=== PATIENT | female | born 1965 | race Caucasian/White ===

== ENCOUNTER 2020-08-03 21:14 | Emergency (ER) | payer MEDICARE ==
[~2020-08-03] VITALS: Ht 162.6 cm; Wt 58.5 kg
[2020-08-04] MEDS ORDERED: CARV25 PO (00:52)
[2020-08-04] MEDS ORDERED: LOSA25 PO (00:52)
[2020-08-04] MEDS ORDERED: AMLODIPINE-OLM1 EACH PO (00:52)
[2020-08-04] MEDS ORDERED: ASPI81CH PO (00:52)
[2020-08-04] MEDS ORDERED: CYCL10 PO (00:55)
== END 2020-08-04 01:22 | disposition home or self-care (01) ==
LOC: ER 21:14
DX: S10.93XA Contusion of unspecified part of neck, initial encounter (principal); S70.01XA Contusion of right hip, initial encounter; Z79.82 Long term (current) use of aspirin; Z79.899 Other long term (current) drug therapy; Z88.2 Allergy status to sulfonamides; Z88.1 Allergy status to other antibiotic agents; V03.90XA Pedestrian on foot injured in collision with car, pick-up truck or van, unspecified whether traffic or nontraffic accident, initial encounter; Y92.481 Parking lot as the place of occurrence of the external cause
CPT/HCPCS: 72100; 72125; 99284-25; A9270

== ENCOUNTER 2021-08-21 17:54 | Inpatient (IN) | payer MEDICARE ==
[~2021-08-21] VITALS: Ht 162.6 cm; Wt 65.1 kg
[~2021-08-21 17:54] MED LIST: ALPR1 PO; AMLO10 PO; AMLODIPINE-OLM1 EACH PO; ASPI325EC PO; ATORVASTATIN CA80 M1 PO; CARV25 PO; CYCL10 PO; GLIP2.5ER PO; LOSA25 PO; METO25 PO; NICODERM CQ1 EA11 TOP; NITR.4SL SL; ONDA4ODT MM
[2021-08-21 18:21] LABS: BASOPHILS ABSOLUTE AUTO 0.06 K/mm3 (0.00-0.23); BASOPHILS PERCENT AUTO 1 % (0-2); EOSINOPHILS PERCENT AUTO 2 % (0-6); Hematocrit 41.8 % (33.0-51.0); Hemoglobin 13.9 g/dL (11.5-16.0); IMMATURE GRAN ABSOLUTE AUTO 0.03 K/mm3 (0.00-0.10); IMMATURE GRAN PERCENT AUTO 0 % (0-1); LYMPHOCYTES ABSOLUTE AUTO 2.55 K/mm3 (0.84-5.20); LYMPHOCYTES PERCENT AUTO 29 % (21-46); MONOCYTES ABSOLUTE AUTO 0.38 K/mm3 (0.16-1.47); MONOCYTES PERCENT AUTO 4 % (4-13); Mean Corpuscular HGB 29.6 pg (26.0-34.0); Mean Corpuscular HGB Conc 33.3 g/dL (31.5-36.5); Mean Corpuscular Volume 89 fL (80-100); Mean Platelet Volume 8.6 fL (9.1-12.4); NEUTROPHILS PERCENT AUTO 63 % (41-73); Platelet Count 271 K/mm3 (150-400); RDW Coefficient Variation 13.7 % (11.7-14.2); RDW Standard Deviation 44.7 fL (35.1-46.3); Red Blood Cell Count 4.69 M/mm3 (3.80-5.20); White Blood Cell Count 8.72 K/mm3 (4.00-11.30)
[2021-08-21 18:38] LABS: Albumin, Blood 3.6 g/dL (3.4-5.0); Bilirubin, Total 0.3 mg/dL (0.1-1.0); Bun/Creatinine Ratio 12.2 (12.0-20.0); Creatinine, Blood 1.15 mg/dL (0.40-1.00); Globulin, Blood 3.5 g/dL (2.2-4.0); Potassium, Blood 3.8 mmol/L (3.5-5.5); Total Protein, Blood 7.1 g/dL (6.4-8.2)
[2021-08-21 19:48] LABS: Anti-Xa UFH, PHA Monitoring <0.10 IU/mL; International Normalized Ratio 1.05
[2021-08-22 03:58] LABS: BASOPHILS ABSOLUTE AUTO 0.06 K/mm3 (0.00-0.23); BASOPHILS PERCENT AUTO 1 % (0-2); EOSINOPHILS ABSOLUTE AUTO 0.22 K/mm3 (0.00-0.68); EOSINOPHILS PERCENT AUTO 3 % (0-6); Hematocrit 38.7 % (33.0-51.0); Hemoglobin 12.6 g/dL (11.5-16.0); IMMATURE GRAN ABSOLUTE AUTO 0.02 K/mm3 (0.00-0.10); IMMATURE GRAN PERCENT AUTO 0 % (0-1); LYMPHOCYTES ABSOLUTE AUTO 2.85 K/mm3 (0.84-5.20); LYMPHOCYTES PERCENT AUTO 38 % (21-46); MONOCYTES ABSOLUTE AUTO 0.41 K/mm3 (0.16-1.47); MONOCYTES PERCENT AUTO 5 % (4-13); Mean Corpuscular HGB 29.2 pg (26.0-34.0); Mean Corpuscular HGB Conc 32.6 g/dL (31.5-36.5); Mean Corpuscular Volume 90 fL (80-100); Mean Platelet Volume 8.9 fL (9.1-12.4); NEUTROPHILS ABSOLUTE AUTO 3.99 K/mm3 (1.96-9.15); NEUTROPHILS PERCENT AUTO 53 % (41-73); Platelet Count 241 K/mm3 (150-400); RDW Coefficient Variation 13.6 % (11.7-14.2); RDW Standard Deviation 44.8 fL (35.1-46.3); Red Blood Cell Count 4.32 M/mm3 (3.80-5.20); White Blood Cell Count 7.55 K/mm3 (4.00-11.30)
[2021-08-22 04:22] LABS: Alanine Aminotransfer (ALT/SGP 20 U/L (12-78); Alk Phos 84 U/L (50-136); Anion Gap 5 mmol/L (6-16); Aspartate Aminotrans (AST/SGOT 15 U/L (12-37); Bilirubin, Total 0.4 mg/dL (0.1-1.0); Blood Urea Nitrogen 14 mg/dL (8-24); Bun/Creatinine Ratio 15.2 (12.0-20.0); CO2, Blood 29 mmol/L (21-32); Calcium, Blood 8.5 mg/dL (8.5-10.1); Chloride, Blood 105 mmol/L (98-108); Creatinine, Blood 0.92 mg/dL (0.40-1.00); Globulin, Blood 3.1 g/dL (2.2-4.0); Glomerular Filtration Rate >60 (60-); Glucose, Blood 308 mg/dL (70-99); Potassium, Blood 3.5 mmol/L (3.5-5.5); Sodium, Blood 139 mmol/L (136-145); Total Protein, Blood 6.1 g/dL (6.4-8.2)
--- NOTE | 2021-08-22 05:40 | NUR ---
SHIFT SUMMARY PT IS ALERT AND ORINTED X4. THERE HAVE BEEN NO ACUTE CHANGES T/O THE NIGHT. VITALS HAVE BEEN STABLE AND IS ON ROOM AIR WITH SATS ABOVE 92%. PT DENIES CHEST PAIN THIS MORNING AND DENIES BACK PAIN WELL. LAST NIGHT REPORTED CHEST PAIN OF 2/10 AND UPPER BACK PAIN OF 7/10, PAIN WAS RELIEVED WITH MED. HEPARIN IS INFUSING AT 12. TROPONIN IS AT 354 BUT TRENDING DOWN FROM [facility] LAB[facility]. PT IS ABLE TO WALK TO BATHROOM WITH SBA. CONSULT CALLED IN DURING NOC SHIFT. PT IS CURRENTLY NPO. CALL LIGHT IS WITHIN REACH.
--- NOTE | 2021-08-22 16:51 | NUR ---
PT SUMMARY: NO ACUTE CHANGE FOR THE SHIFT, PT DENIES ANY CHEST PAIN MORE OF THE BACK PAIN TODAY PT ON SCHEDULED NORCO WITH RELIEF. VITALS HAS BEEN STABLE. HRR SINUS AT 70'S, BP SYSTOLIC 115-120'S, SATS ABOVE 95% ON RA, AFEBRILE. PT SBA USES THE BATHROOM WITH NO ISSUES. DR MORTON CAME BY AND SAW PT TODAY PLAN FOR ANGIO IN AM, NPO AT MIDNIGHT AND TO HOLD HEP GTT AT 0400AM 08/23/21. PT'S DIET RESUMED. HEP GTT CURRENTLY RUNNING AT 10U/KG/HR, NEXT ANTI XA AT 2100. NO OTHER ISSUES REPORTED FOR THE SHIFT, PT A&OX4, CALLS APPROPRIATELY, WILL REPORT TO ONCOMING SHIFT
--- NOTE | 2021-08-23 01:26 | NUR ---
PATIENT REMAINS IN BED, ALERT ORIENTED BALE TO MAKE NEEDS KNOWN. STANDBY ASSIST TO BATHROOM. PATIENT MEDICATED TIME 1 WITH NORCO AT 2100 SCHEDULE. CONTINUE HEP-ANTI X DRAWN AT 2100. PATIENT WAS REMAINED OF NPO STATIS 12 MIDNIGHT, CONCERNING PROCEDURE IN A.M. OLD NICOTINE PATCH REMOVED AND NEW ONE REPLACED TO RIGHT UPPER SHOULDER. CONTINUE TO MONITOR PATIENT CONDITION. SAFETY MAINTAINED.
--- NOTE | 2021-08-23 15:45 | NUR ---
TRANSFER SUMMARY: REPORT GIVEN TO TWO RORO RN'S AT [facility] DUE TO RN CHANGE. PHONE:[phone]. PATIENT IS STABLE AT THIS TIME HEPARIN INFUSING, WITH DECREASED CHEST PAIN, CHRONIC PAIN HAS BEEN IN CONTROL WITH TID NORCO AND FLEXERIL. PATIENT IS TRANSPORTING VIA [facility], IN TRANSPORT TO [place]. PATIENT HAD A LEFT TR BAND THAT HAD 10 mL OF AIR, I HAVE NOT TAKEN ANY AIR OUT OF SITE, ADDITIONALLY SHE HAS A RIGHT GROIN SITE THAT IS VERY MINIMALLY OOZING, BANDAGE CHANGE WAS GIVEN, DIGITAL MEDIA SALES CONSULTANT INFORMED WILL CALL CARDIOLOGY WITH ANY CHANGES. PATIENT LEFT ALERT AND ORIENTED, ON RA, SISTER HAS PERSONAL BELONGINGS. PATIENT STAFF, TRANSPORT STAFF, [place] RN'S ALL HAD CLEAR UNDERSTANDING OF THE SITUATION AND CONDIDTION OF PATIENT, NO FURTHER QUESTIONS COMMENTS OR CONCERNS FROM ANY ENTITY.
[2021-08-23 16:20] LABS: Influenza A, PCR NEGATIVE (NEGATIVE); Influenza B, PCR NEGATIVE (NEGATIVE); Resp Syncytial Virus, PCR NEGATIVE (NEGATIVE); SARS-Cov-2 (COVID-19) PCR, MMC NEGATIVE (NEGATIVE)
== END 2021-08-23 15:56 | disposition short-term general hospital (02) | DRG 281 ==
LOC: ER 17:54 → PCU 20:35
PROVIDERS: Emergency Medicine; Internal Medicine; ADMIT Internal Medicine
PROC: 3E02340 Introduction of Influenza Vaccine into Muscle, Percutaneous Approach (ICD-10-PCS; 2021-08-21)
PROC: 4A023N7 Measurement of Cardiac Sampling and Pressure, Left Heart, Percutaneous Approach (ICD-10-PCS; principal; 2021-08-23)
PROC: B2111ZZ Fluoroscopy of Multiple Coronary Arteries using Low Osmolar Contrast (ICD-10-PCS; 2021-08-23)
DX: I21.4 Non-ST elevation (NSTEMI) myocardial infarction (principal); I25.810 Atherosclerosis of coronary artery bypass graft(s) without angina pectoris; Z20.822 Contact with and (suspected) exposure to COVID-19; I10 Essential (primary) hypertension; E11.9 Type 2 diabetes mellitus without complications; Z23 Encounter for immunization; E78.5 Hyperlipidemia, unspecified; I25.10 Atherosclerotic heart disease of native coronary artery without angina pectoris; F41.9 Anxiety disorder, unspecified; I25.2 Old myocardial infarction; F17.210 Nicotine dependence, cigarettes, uncomplicated; Z95.1 Presence of aortocoronary bypass graft; Z95.5 Presence of coronary angioplasty implant and graft; Z88.2 Allergy status to sulfonamides; Z71.6 Tobacco abuse counseling; Z88.8 Allergy status to other drugs, medicaments and biological substances; Z79.84 Long term (current) use of oral hypoglycemic drugs; Z79.82 Long term (current) use of aspirin; Z79.899 Other long term (current) drug therapy; Z91.041 Radiographic dye allergy status
CPT/HCPCS: 0241U; 36221; 36226; 36415; 36416; 71045; 76937; 80053; 83690; 84484; 85025; 85520; 85610; 90686; 93005; 93010; 93306; 93459; 96365; 96375; 99152; 99153; 99285-25; A9270; C1760; C1769; C1894; G0008; J1200; J1644; J2250; J2405; J3010; J7030; Q9967

== ENCOUNTER 2021-11-16 17:24 | Emergency (ER) | payer OTHER, MEDICARE ==
[~2021-11-16] VITALS: Ht 162.6 cm; Wt 59.9 kg
[~2021-11-16 17:24] MED LIST changes: +LIDO700A20 TOP
[2021-11-16 18:22] LABS: BASOPHILS ABSOLUTE AUTO 0.05 K/mm3 (0.00-0.23); BASOPHILS PERCENT AUTO 1 % (0-2); EOSINOPHILS ABSOLUTE AUTO 0.09 K/mm3 (0.00-0.68); EOSINOPHILS PERCENT AUTO 2 % (0-6); Hematocrit 37.7 % (33.0-51.0); Hemoglobin 12.2 g/dL (11.5-16.0); IMMATURE GRAN ABSOLUTE AUTO 0.01 K/mm3 (0.00-0.10); IMMATURE GRAN PERCENT AUTO 0 % (0-1); LYMPHOCYTES ABSOLUTE AUTO 1.83 K/mm3 (0.84-5.20); LYMPHOCYTES PERCENT AUTO 32 % (21-46); MONOCYTES ABSOLUTE AUTO 0.32 K/mm3 (0.16-1.47); MONOCYTES PERCENT AUTO 6 % (4-13); Mean Corpuscular HGB 28.4 pg (26.0-34.0); Mean Corpuscular HGB Conc 32.4 g/dL (31.5-36.5); Mean Corpuscular Volume 88 fL (80-100); NEUTROPHILS ABSOLUTE AUTO 3.45 K/mm3 (1.96-9.15); NEUTROPHILS PERCENT AUTO 60 % (41-73); Platelet Count 244 K/mm3 (150-400); RDW Coefficient Variation 13.1 % (11.7-14.2); RDW Standard Deviation 41.7 fL (35.1-46.3); Red Blood Cell Count 4.29 M/mm3 (3.80-5.20); White Blood Cell Count 5.75 K/mm3 (4.00-11.30)
[2021-11-16 18:44] LABS: Albumin, Blood 3.4 g/dL (3.4-5.0); Albumin/Globulin Ratio 0.9 (0.8-1.8); Bilirubin, Total 0.3 mg/dL (0.1-1.0); Bun/Creatinine Ratio 14.4 (12.0-20.0); Calcium, Blood 9.5 mg/dL (8.5-10.1); Creatinine, Blood 0.83 mg/dL (0.40-1.00); Globulin, Blood 3.8 g/dL (2.2-4.0); Potassium, Blood 3.7 mmol/L (3.5-5.5); Total Protein, Blood 7.2 g/dL (6.4-8.2)
[2021-11-16 19:15] LABS: Base Excess Venous -0.3 mmol/L; PCO2 Venous 43.6 mmHg (38-42); PO2 Venous 83.4 mmHg (38-42); pH Blood Venous 7.37 (7.34-7.37)
== END 2021-11-16 20:26 | disposition home or self-care (01) ==
LOC: ER 17:24
PROVIDERS: Emergency Medicine; Physician Assistant
DX: H53.8 Other visual disturbances (principal); E11.65 Type 2 diabetes mellitus with hyperglycemia; M54.2 Cervicalgia; I25.2 Old myocardial infarction; E78.5 Hyperlipidemia, unspecified; I10 Essential (primary) hypertension; I25.10 Atherosclerotic heart disease of native coronary artery without angina pectoris; F12.90 Cannabis use, unspecified, uncomplicated; Z95.1 Presence of aortocoronary bypass graft; Z95.5 Presence of coronary angioplasty implant and graft; Z88.2 Allergy status to sulfonamides; Z88.1 Allergy status to other antibiotic agents; Z91.041 Radiographic dye allergy status; Z79.82 Long term (current) use of aspirin; Z79.84 Long term (current) use of oral hypoglycemic drugs; Z79.899 Other long term (current) drug therapy; Z79.02 Long term (current) use of antithrombotics/antiplatelets; F17.210 Nicotine dependence, cigarettes, uncomplicated
CPT/HCPCS: 36415; 70450; 80053; 82010; 82803; 82947; 83036; 85025; A9270; J1885; J7030

== ENCOUNTER 2022-02-09 10:41 | Inpatient (IN) | payer MEDICARE ==
[~2022-02-09] VITALS: Ht 162.6 cm; Wt 59.2 kg
[2022-02-09 12:24] LABS: Albumin, Blood 4.1 g/dL (3.4-5.0); Albumin/Globulin Ratio 1.1 (0.8-1.8); Bilirubin, Total 0.7 mg/dL (0.1-1.0); Bun/Creatinine Ratio 10.7 (12.0-20.0); Calcium, Blood 9.8 mg/dL (8.5-10.1); Creatinine, Blood 0.75 mg/dL (0.40-1.00); Globulin, Blood 3.8 g/dL (2.2-4.0); Total Protein, Blood 7.9 g/dL (6.4-8.2)
[2022-02-09 12:31] LABS: BASOPHILS ABSOLUTE AUTO 0.04 K/mm3 (0.00-0.23); BASOPHILS PERCENT AUTO 1 % (0-2); EOSINOPHILS ABSOLUTE AUTO 0.05 K/mm3 (0.00-0.68); EOSINOPHILS PERCENT AUTO 1 % (0-6); Hematocrit 44.9 % (33.0-51.0); Hemoglobin 14.8 g/dL (11.5-16.0); IMMATURE GRAN ABSOLUTE AUTO 0.01 K/mm3 (0.00-0.10); IMMATURE GRAN PERCENT AUTO 0 % (0-1); LYMPHOCYTES ABSOLUTE AUTO 1.64 K/mm3 (0.84-5.20); LYMPHOCYTES PERCENT AUTO 28 % (21-46); MONOCYTES ABSOLUTE AUTO 0.26 K/mm3 (0.16-1.47); MONOCYTES PERCENT AUTO 4 % (4-13); Mean Corpuscular HGB 28.1 pg (26.0-34.0); Mean Corpuscular Volume 85 fL (80-100); Mean Platelet Volume 8.7 fL (9.1-12.4); NEUTROPHILS ABSOLUTE AUTO 3.87 K/mm3 (1.96-9.15); NEUTROPHILS PERCENT AUTO 66 % (41-73); Platelet Count 271 K/mm3 (150-400); RDW Coefficient Variation 13.7 % (11.7-14.2); RDW Standard Deviation 42.5 fL (35.1-46.3); Red Blood Cell Count 5.27 M/mm3 (3.80-5.20); White Blood Cell Count 5.87 K/mm3 (4.00-11.30)
[2022-02-09] MEDS ORDERED: CLOP75 PO (14:17)
[2022-02-09] MEDS ORDERED: CLON.5 PO (14:17)
[2022-02-09] MEDS ORDERED: Chantix1 MG PO (14:18)
[2022-02-09] MEDS ORDERED: Aspir 8181 MG PO (14:18)
[2022-02-09 14:19] LABS: Anti-Xa UFH, PHA Monitoring <0.10 IU/mL; International Normalized Ratio 1.06; Prothrombin Time Results 11.1 Sec (9.7-11.5)
[2022-02-09] MEDS ORDERED: METO50ER PO (14:20)
[2022-02-09] MEDS ORDERED: ABILIFY5 MG PO (14:23)
[2022-02-10 05:21] LABS: Source, Urine Clean Catch
[2022-02-10 05:33] LABS: Bilirubin, Urine Neg (Neg); Blood, Urine 2+ (Neg); Color, Urine Yellow (P-Yellow); Glucose Qualitative, Urine 4+ (Neg); Ketones, Urine 2+ (Neg); Leukocyte Esterase, Urine 2+ (Neg); Nitrite, Urine Neg (Neg); Protein, Urine Neg (Neg); Urobilinogen, Urine NORM (Normal)
[2022-02-10 05:35] LABS: Hematocrit 43.5 % (33.0-51.0); Hemoglobin 14.1 g/dL (11.5-16.0); Mean Corpuscular HGB 27.9 pg (26.0-34.0); Mean Corpuscular HGB Conc 32.4 g/dL (31.5-36.5); Mean Corpuscular Volume 86 fL (80-100); Mean Platelet Volume 8.8 fL (9.1-12.4); Platelet Count 239 K/mm3 (150-400); RDW Coefficient Variation 13.5 % (11.7-14.2); RDW Standard Deviation 42.3 fL (35.1-46.3); Red Blood Cell Count 5.06 M/mm3 (3.80-5.20); White Blood Cell Count 8.63 K/mm3 (4.00-11.30)
[2022-02-10 05:36] LABS: Appearance, Urine Cloudy (Clear)
--- NOTE | 2022-02-10 05:38 | NUR ---
Assumed care of pt at 1900 as an ER admit. Denies any CP/pressure or SOB. VSS. SR on tele. Heparin running per emar, NS started at 2330 per emar. Patient NPO since midnight. No acute changes. Will report to dayshift RN.
[2022-02-10 05:51] LABS: Bacteria Many /hpf; Squamous Epithelial Cells Mod /hpf (Few); White Blood Cells, Urine 25-50 /hpf (0-5)
[2022-02-10 06:09] LABS: Anion Gap 8 mmol/L (6-16); Blood Urea Nitrogen 15 mg/dL (8-24); Bun/Creatinine Ratio 19.8 (12.0-20.0); CHOL/HDL RATIO 5.6; CO2, Blood 21 mmol/L (21-32); Calcium, Blood 8.9 mg/dL (8.5-10.1); Chloride, Blood 109 mmol/L (98-108); Cholesterol 278 mg/dL (50-200); Creatinine, Blood 0.76 mg/dL (0.40-1.00); Glomerular Filtration Rate 92 (60-); Glucose, Blood 379 mg/dL (70-99); HDL Cholesterol 50 mg/dL (>39); Low Density Lipoprotein Chol 202 mg/dL (0-110); Potassium, Blood 4.2 mmol/L (3.5-5.5); Sodium, Blood 138 mmol/L (136-145); Triglycerides 131 mg/dL (30-160); Very Low Density Lipoprot Chol 26 mg/dL (6-32)
--- NOTE | 2022-02-10 08:54 | NUR ---
ASSUMPTION OF CARE STEPHEN MONGE AND KWADWO MONGE ASSUMED CARE OF PATIENT AT 0700. REPORT TAKEN FROM JUAN ALBERTO MONGE. CALL TO LAUNDRY OPERATOR THIS AM ABOUT SCHEDULED ANGIO. PATIENT WILL LIKELY GO TO LAUNDRY OPERATOR BETWEEN 1400 AND 1500. PATIENT ON HEPARIN GTT RUNNING AT 15 U/KG/HR. NO ACUTE CHANGES DURING THE NIGHT. PATIENT DENIES CHEST PAIN. INDEPENDENT IN ROOM. VITALS STABLE. PATIENT REMAINS NPO FOR ANGIO LATER TODAY.
--- NOTE | 2022-02-10 16:31 | NUR ---
SHIFT SUMMARY PATIENT IS A&O X4. INDEPENDENT IN ROOM. VITALS STABLE DURING THIS SHIFT. CHEST PAIN THIS AFTERNOON; MEDICATED WITH NITRO PASTE WITH PATIENT REPORTING THAT CHEST PAIN WENT AWAY, HOWEVER, PATIENT HAD A HEADACHE. MEDICATED PER EMAR FOR HEADACHE WITH NONPHARMACOLOGIC INTERVENTIONS DONE WELL SUCH TURNING OFF THE LIGHTS AND REDUCING NOISE/STIMULATION. PATIENT HAS BEEN INDEPENDENT IN ROOM DURING THE SHIFT WITH FAMILY AT BEDSIDE. PATIENT WENT TO CHAIN FORMING MACHINE OPERATOR AT 1630 FOR AN ANGIO. HEPARIN GTT AND NS ON STANDBY PENDING PATIENT RETURN AND MD ORDERS POST ANGIO.
--- NOTE | 2022-02-10 18:22 | NUR ---
PT RETURNS FROM BACK GRAY CLOTH WASHER WITH RT GROIN SITE. NO STENTS ASND NO BALLONING PERFORMED, PT WILL CONTINUE WITH MEDICAL MANAGEMENT. PT A/O X4 TALKING IN FAULL SENTENCES, REPORTS GOOD IMPROVEMENT OF VALERIO AND DENIES CP, DENIES SOB. VSS. PER DR BEAR PT'S IV NS INFUSION WILL CONTINUE X6 HOURS POST PROCEDURE AND WILL END AROUND 0015. PT TO REMAIN FLAT X6 HOURS POST SHEATH REMOVAL AND WILL BE FLAT UNTIL 2325 TONIGHT. PT HAS HX OF BLEEDING POST ANGIO, PRESSURE WAS MIGUELINA X20 MINUTES IN HEART CENTER, THERE IS NO ACTIVE BLEEDING UPON ARRIVAL. GROIN SOFT, NONTENDER, NO HEAT NOTED. NEHEMIAH CLOSURE DEVICE WAS USED. NO HEMATOMA NOTED TO GROIN SITE, DISTAL PULSES STRONG, SKIN PWD AND INTACT. 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 WILL CONTINUE TO MONITOR SITE AND MONITOR VITALS FOR ANY CHANGES
--- NOTE | 2022-02-11 05:22 | NUR ---
Patients R fem site remained C/D/I. No c/o CP/pressure, c/o chronic shoulder pain relieved with PRN muscle relaxer. Patient has been more sinus dalia tonight with HR in the 40's, where as previous nights in the 60's. Patient is asymptomatic with her bradycardia. Other VS stable. Will report to dayshift RN.
--- NOTE | 2022-02-11 09:00 | NUR ---
ASSUMPTION OF CARE STEPHEN MONGE AND KWADWO MONGE ASSUMED CARE OF PATIENT AT 0700. REPORT TAKEN FROM JUAN ALBERTO MONGE. PATIENTS VITALS STABLE AND RIGHT FEMORAL SITE IS SOFT, NONTENDER, AND FREE OF ANY SIGNS OF BLEEDING/PAIN/DISCOLORATION. PATIENT IS INDEPENDENT IN ROOM. DENIES CHEST PAIN. CURRENTLY SITTING UP IN BED EATING BREAKFAST. BED IN LOWEST POSITION AND CALL LIGHT WITHIN REACH.
--- NOTE | 2022-02-11 14:55 | NUR ---
DISCHARGE TEACHING NOTE THIS RN TO BEDSIDE TO INSTRUCT PATIENT ON DIABETES AND INSULIN ADMINISTRATION WHILE HOME. THIS RN USED A ROLL OF COBAN AND INSULIN PEN NEEDLES TO DEMONSTRATE HOW TO ADMINISTER INSULIN AND TO HAVE THE PATIENT PRACTICE POKING THE COBAN ROLL WITH THE PEN/NEEDLE SETUP. THIS RN USED VERBAL INSTRUCTIONS FIRST AND THEN WALKED THE PATIENT THROUGH THE DEMONSTRATION OF THIS RN PUSHING THE NEEDLE THROUGH THE COBAN ROLL. THE PATIENT WAS THEN ABLE TO DEMONSTRATE PROPER USE AND PRACTICE 5 TIMES. THE PATIENT WAS INSTRUCTED ON S/S OF HYPOGLYCEMIA AND HYPERGLYCEMIA. THE PATIENT VERBALIZED HAVING GOOD UNDERSTANDING OF HYPOGLYCEMIA SYMPTOMS SHE HAS EXPERIENCED THIS BEFORE. THE PATIENT VERBALIZED UNDERSTANDING THE USE OF SIMPLE SUGARS SUCH ORANGE JUICE DURING HYPOGLYCEMIC EPISODES. THIS RN ALSO TAUGHT THE PATIENT TO INSTRUCT THE FAMILY AND CLOSE FRIENDS ON THE PATIENT HAVING LOW BLOOD SUGAR AND THESE S/S SUCH CONFUSION/SWEATING. THE PATIENT WAS INSTRUCTED ON KEEPING SIMPLE SUGAR FOOD ITEMS READILY AVAILABLE IN HER HOME AND IN HER PURSE. THE PATIENT WAS ALSO INSTRUCTED ON KEEPING A MEDICATION LIST IN THE PURSE AND THE VALUE OF A MEDIC ALERT BRACELET/NECKLACE. THE PATIENT VERBALIZED UNDERSTANDING THESE INSTRUCTIONS VIA TEACHBACK. THIS RN EMPHASIZED THE NEED TO TALK TO THE PHARMACIST ABOUT THE NEEDLES THAT SHE GETS AND WHETHER THEY NEED TO BE PRIMED PRIOR TO ADMINISTERING UNITS. THE PATIENT USED TEACH BACK TO VERBALIZED SHE UNDERSTOOD THESE INSTRUCTIONS AND WHY WE PRIME NEEDLES. THIS RN INSTRUCTED THE PATIENT ON DIFFERENT AREAS USED FOR ADMINISTRATION, SUCH THE ABDOMEN AND THE SIDES OF THE THIGH VIA DEMONSTRATION. IT WAS EMPHASIZED THAT THE PATIENT SHOULD STAY AWAY FROM THE BELLY BUTTON BY A 2 INCH MINIMUM. THE PATIENT VERBALIZED UNDERSTANDING. THE PATIENT WAS ALSO ABLE TO DEMONSTRATE THE AREAS THAT SHE CAN USE FOR ADMINISTRATION. THE PATIENT WAS TAUGHT HOW TO ROTATE SITES EACH TIME, AND THAT WHEN SCAR TISSUE DEVELOPS SHE WILL NEED TO AVOID THESE AREAS. THE PATIENT VERBALIZED UNDERSTANDING. THIS RN ALLOWED THE PATIENT TO PRACTICE MOVING THE DIAL ON THE INSULIN PEN AND SHOWED WHERE YOU SEE UNITS AND HOW TO HOLD THE PEN INTO THE SKIN FOR 10 SECONDS BEFORE WITHDRAWING THE NEEDLE. THE PATIENT DEMONSTRATED PROFICIENTLY 5 TIMES AND STATED "THIS SEEMS PRETTY EASY". THIS RN ALLOWED THE PATIENT TO ANSWER QUESTIONS AND USED THE TEACHBACK METHOD THROUGHOUT THE EDUCATION. THE PATIENT WILL BE PROVIDED WITH A REVIEW OF THE INFORMATION AND PRINTED EDUCATION PRIOR TO DISCHARGE FROM THIS RN.
[2022-02-11] MEDS ORDERED: HUMALOG KW100 UNIT/1 SC (15:03)
[2022-02-11] MEDS ORDERED: Isosorbide Mono30 MG PO (15:04)
--- NOTE | 2022-02-11 16:22 | NUR ---
DISCHARGE NOTE THIS RN WENT OVER DISCHARGE INSTRUCTIONS, AND REINFORCED PREVIOUS TEACHING OF DIABETIC/INSULIN MANAGEMENT WELL DIET. ALL NEW INFORMATION WAS PROVIDED IN PRINTED FORMAT. FEMORAL SITE CARE INSTRUCTIONS GIVEN TO PATIENT. PATIENT VERBALIZED UNDERSTANDING INSTRUCTIONS ABOUT LOOKING FOR BLEEDING/OOZING AT PUNCTURE SITE. THE PATIENT VERBALIZED UNDERSTANDING THAT SHE SHOULD GO TO THE EMERGENCY ROOM IF ANY NUMBNESS/TINGLING/DISCOLORATION OCCURS IN RIGHT LEG OR IF BLEEDING OCCURS. PATIENT VERBALIZED UNDERSTANDING THAT THE WOUND DRESSING SHOULD BE ALLOWED TO FALL OFF AND TO REFRAIN FROM STRENUOUS ACTIVITY UNTIL FOLLOW UP WITH THE DATA ARCHITECT. NEW MEDICATION INFORMATION AND SIDE EFFECTS WAS DISCUSSED WITH THE PATIENT AND PRINTED INFORMATION WAS GIVEN FOR REFERENCE. PRESRIPTIONS WERE CALLED INTO PHARMACY. BOTH IV'S REMOVED. PATIENT WAS ABLE TO DRESS SELF INDEPENDENTLY. VITALS WERE STABLE AND PATIENT WAS TAKEN OUT OF BUILDING VIA WHEELCHAIR. PATIENT WAS ABLE TO GET INTO CAR WITHOUT ANY DIFFICULTIES. PATIENT'S SISTER TO DRIVE PATIENT HOME.
== END 2022-02-11 17:02 | disposition home or self-care (01) | DRG 281 ==
LOC: ER 10:41 → PCU 14:14
PROVIDERS: Emergency Medicine; Family Medicine; Nurse Practitioner Acute Care; Student in an Organized Health Care Education/Training Program; ADMIT Internal Medicine
PROC: 4A023N7 Measurement of Cardiac Sampling and Pressure, Left Heart, Percutaneous Approach (ICD-10-PCS; principal; 2022-02-10)
PROC: B2111ZZ Fluoroscopy of Multiple Coronary Arteries using Low Osmolar Contrast (ICD-10-PCS; 2022-02-10)
PROC: B2121ZZ Fluoroscopy of Single Coronary Artery Bypass Graft using Low Osmolar Contrast (ICD-10-PCS; 2022-02-10)
DX: I21.4 Non-ST elevation (NSTEMI) myocardial infarction (principal); I25.810 Atherosclerosis of coronary artery bypass graft(s) without angina pectoris; E11.9 Type 2 diabetes mellitus without complications; F41.1 Generalized anxiety disorder; I10 Essential (primary) hypertension; I73.00 Raynaud's syndrome without gangrene; E78.5 Hyperlipidemia, unspecified; F17.210 Nicotine dependence, cigarettes, uncomplicated; I25.2 Old myocardial infarction; Z95.5 Presence of coronary angioplasty implant and graft; Z95.1 Presence of aortocoronary bypass graft; Z79.82 Long term (current) use of aspirin; Z79.02 Long term (current) use of antithrombotics/antiplatelets; Z79.899 Other long term (current) drug therapy; Z88.2 Allergy status to sulfonamides; Z91.041 Radiographic dye allergy status
CPT/HCPCS: 36415; 71045; 76937; 80048; 80053; 80061; 81001; 82947; 83036; 84484; 85025; 85027; 85520; 85610; 87077; 87086; 87186; 93005; 93010; 93306; 93455; 96374; 96375; 99152; 99153; 99291-25; A9270; C1769; C1894; J1644; J2250; J2270; J2405; J3010; J7030; J7050; J7512; Q9967

== ENCOUNTER 2022-03-23 09:15 | Inpatient (IN) | payer MEDICARE ==
[~2022-03-23] VITALS: Ht 162.6 cm; Wt 55.6 kg
[~2022-03-23 09:15] MED LIST changes: +ABILIFY5 MG PO; +Aspir 8181 MG PO; +CLON.5 PO; +CLOP75 PO; +Chantix1 MG PO; +HUMALOG KW100 UNIT/1 SC; +Isosorbide Mono30 MG PO; +METO50ER PO
[2022-03-23 10:17] LABS: BASOPHILS ABSOLUTE AUTO 0.03 K/mm3 (0.00-0.23); BASOPHILS PERCENT AUTO 1 % (0-2); EOSINOPHILS ABSOLUTE AUTO 0.04 K/mm3 (0.00-0.68); EOSINOPHILS PERCENT AUTO 1 % (0-6); Hematocrit 45.3 % (33.0-51.0); Hemoglobin 14.9 g/dL (11.5-16.0); IMMATURE GRAN ABSOLUTE AUTO 0.01 K/mm3 (0.00-0.10); IMMATURE GRAN PERCENT AUTO 0 % (0-1); LYMPHOCYTES ABSOLUTE AUTO 1.36 K/mm3 (0.84-5.20); LYMPHOCYTES PERCENT AUTO 30 % (21-46); MONOCYTES ABSOLUTE AUTO 0.24 K/mm3 (0.16-1.47); MONOCYTES PERCENT AUTO 5 % (4-13); Mean Corpuscular HGB 28.5 pg (26.0-34.0); Mean Corpuscular HGB Conc 32.9 g/dL (31.5-36.5); Mean Corpuscular Volume 87 fL (80-100); Mean Platelet Volume 8.3 fL (9.1-12.4); NEUTROPHILS ABSOLUTE AUTO 2.87 K/mm3 (1.96-9.15); NEUTROPHILS PERCENT AUTO 63 % (41-73); Platelet Count 244 K/mm3 (150-400); RDW Coefficient Variation 14.3 % (11.7-14.2); RDW Standard Deviation 45.8 fL (35.1-46.3); Red Blood Cell Count 5.22 M/mm3 (3.80-5.20); White Blood Cell Count 4.55 K/mm3 (4.00-11.30)
[2022-03-23] MEDS ORDERED: JARDIANCE25 MG PO (10:20)
[2022-03-23] MEDS ORDERED: OZEMPIC0.25 MG/0. SC (10:20)
[2022-03-23 10:40] LABS: Albumin/Globulin Ratio 1.1 (0.8-1.8); Bilirubin, Total 0.5 mg/dL (0.1-1.0); Bun/Creatinine Ratio 14.3 (12.0-20.0); Calcium, Blood 9.3 mg/dL (8.5-10.1); Creatinine, Blood 0.98 mg/dL (0.40-1.00); Globulin, Blood 3.6 g/dL (2.2-4.0); Potassium, Blood 4.1 mmol/L (3.5-5.5); Total Protein, Blood 7.6 g/dL (6.4-8.2)
[2022-03-23 14:29] LABS: Anti-Xa UFH, PHA Monitoring <0.10 IU/mL; International Normalized Ratio 1.09; Prothrombin Time Results 11.4 Sec (9.7-11.5)
--- NOTE | 2022-03-23 14:58 | NUR ---
Pt arrived from ED, on stretcher. Denies pain, dyspnea not noted, and no diaphoresis or evidence of shortness of breath with stand and transfer from stretcher to bed in PCU 19. Tech here to do the echocardiogram at this time. VS noted stable. sinus rhythm, to sinus bradycardia noted by telemetry.
--- NOTE | 2022-03-23 15:30 | NUR ---
PT ARRIVED TO THE UNIT AT APPROXIMATELY 1455. PT ALERT AND ORIENTED UPON ARRIVAL TO THE UNIT. SHE WAS ABLE TO TRANSFER HERSELF FROM THE RNEY TO THE BED, WITHOUT ASSISTANCE. PT DENIES CHEST PAIN AND SHORTNESS OF BREATH. VSS. SENIOR SOFTWARE DEVELOPMENT ENGINEER IN ROOM AT TIME OF ARRIVAL. HEPARIN DRIP VERIFIED WITH INDRA ALCARAZ AND STARTED. WILL CONINTUE TO MONITOR.
--- NOTE | 2022-03-23 18:24 | NUR ---
PT ARRIVED FROM ED AT APPROXIMATELY 1455. VSS, LUNGS CTA BILATERALLY, PULSES STRONG AND REGULAR. BOWEL SOUNDS NORMOACTIVE IN ALL 4 QUADRANTS. PT IS ON BED REST WITH BATHROOM PRIVILEDGES, INDEPENDENT WITH TRANSFERRING. VISITED AND PT ATE DINNER. SHE IS CONTINUING TO TOLERATE HER HEPARIN DRIP WITH NO ADVERSE REACTIONS, IV SITE PATENT AND WNL. SHE HAS NO ACUTE NEEDS AT THIS TIME AND CALL LIGHT IS WITHIN REACH.
[2022-03-24 03:33] LABS: BASOPHILS ABSOLUTE AUTO 0.06 K/mm3 (0.00-0.23); BASOPHILS PERCENT AUTO 1 % (0-2); EOSINOPHILS PERCENT AUTO 2 % (0-6); Hemoglobin 13.1 g/dL (11.5-16.0); IMMATURE GRAN ABSOLUTE AUTO 0.02 K/mm3 (0.00-0.10); IMMATURE GRAN PERCENT AUTO 0 % (0-1); LYMPHOCYTES ABSOLUTE AUTO 2.53 K/mm3 (0.84-5.20); LYMPHOCYTES PERCENT AUTO 46 % (21-46); MONOCYTES PERCENT AUTO 5 % (4-13); Mean Corpuscular HGB 28.8 pg (26.0-34.0); Mean Corpuscular HGB Conc 33.6 g/dL (31.5-36.5); Mean Corpuscular Volume 86 fL (80-100); Mean Platelet Volume 8.4 fL (9.1-12.4); NEUTROPHILS ABSOLUTE AUTO 2.54 K/mm3 (1.96-9.15); NEUTROPHILS PERCENT AUTO 46 % (41-73); Platelet Count 226 K/mm3 (150-400); RDW Coefficient Variation 14.3 % (11.7-14.2); RDW Standard Deviation 44.6 fL (35.1-46.3); Red Blood Cell Count 4.55 M/mm3 (3.80-5.20); White Blood Cell Count 5.55 K/mm3 (4.00-11.30)
[2022-03-24 03:57] LABS: Alanine Aminotransfer (ALT/SGP 21 U/L (12-78); Albumin, Blood 3.4 g/dL (3.4-5.0); Albumin/Globulin Ratio 1.1 (0.8-1.8); Alk Phos 79 U/L (50-136); Anion Gap 5 mmol/L (6-16); Aspartate Aminotrans (AST/SGOT 24 U/L (12-37); Bilirubin, Total 0.4 mg/dL (0.1-1.0); Blood Urea Nitrogen 16 mg/dL (8-24); Bun/Creatinine Ratio 16.6 (12.0-20.0); CHOL/HDL RATIO 5.5; CO2, Blood 26 mmol/L (21-32); Calcium, Blood 9.1 mg/dL (8.5-10.1); Chloride, Blood 108 mmol/L (98-108); Cholesterol 210 mg/dL (50-200); Creatinine, Blood 0.97 mg/dL (0.40-1.00); Globulin, Blood 3.1 g/dL (2.2-4.0); Glomerular Filtration Rate 69 (60-); Glucose, Blood 123 mg/dL (70-99); HDL Cholesterol 38 mg/dL (>39); LDL/HDL RATIO 3.4; Low Density Lipoprotein Chol 128 mg/dL (0-110); Magnesium, Blood 2.5 mg/dL (1.6-2.4); Potassium, Blood 3.5 mmol/L (3.5-5.5); Sodium, Blood 139 mmol/L (136-145); Total Protein, Blood 6.5 g/dL (6.4-8.2); Triglycerides 219 mg/dL (30-160); Very Low Density Lipoprot Chol 43 mg/dL (6-32)
--- NOTE | 2022-03-24 06:45 | NUR ---
NOC SHIFT SUMMARY PT SLEPT WELL OVERNIGHT, VSS PER PT TREND. ON RA. SR/PACS ON TELEMETRY. NO COMPLAINTS OF PAIN OR DISCOMFORT. UAL IN ROOM. HEP GTT RUNNING PER PROVIDER ORDER
--- NOTE | 2022-03-24 18:16 | NUR ---
SHIFT SUMMARY PT HAS BEEN RESTING IN ROOM. PT HAS INDEPENDENTLY AMBULATED TO THE RESTROOM THROUGHOUT THE DAY. PT HAS DENIED ANY EPISODES OF CHEST PAIN OR SHORTNESS OF BREATH. PT HAS DENIED COMPLAINTS OF PAIN AND HAS BEEN ABLE TO REPOSITION SELF FOR COMFORT. ALL VITAL SIGNS HAVE REMAINED STABLE AND THERE HAVE BEEN NO ACUTE CHANGES IN CONDITION.
[2022-03-25 03:50] LABS: BASOPHILS ABSOLUTE AUTO 0.03 K/mm3 (0.00-0.23); BASOPHILS PERCENT AUTO 1 % (0-2); EOSINOPHILS PERCENT AUTO 2 % (0-6); Hematocrit 40.9 % (33.0-51.0); Hemoglobin 13.5 g/dL (11.5-16.0); IMMATURE GRAN ABSOLUTE AUTO 0.01 K/mm3 (0.00-0.10); IMMATURE GRAN PERCENT AUTO 0 % (0-1); LYMPHOCYTES ABSOLUTE AUTO 2.52 K/mm3 (0.84-5.20); LYMPHOCYTES PERCENT AUTO 47 % (21-46); MONOCYTES ABSOLUTE AUTO 0.32 K/mm3 (0.16-1.47); MONOCYTES PERCENT AUTO 6 % (4-13); Mean Corpuscular HGB 28.2 pg (26.0-34.0); Mean Corpuscular Volume 85 fL (80-100); Mean Platelet Volume 8.5 fL (9.1-12.4); NEUTROPHILS ABSOLUTE AUTO 2.38 K/mm3 (1.96-9.15); NEUTROPHILS PERCENT AUTO 44 % (41-73); Platelet Count 241 K/mm3 (150-400); RDW Coefficient Variation 14.3 % (11.7-14.2); RDW Standard Deviation 44.4 fL (35.1-46.3); Red Blood Cell Count 4.79 M/mm3 (3.80-5.20); White Blood Cell Count 5.36 K/mm3 (4.00-11.30)
[2022-03-25 04:05] LABS: Bun/Creatinine Ratio 21.6 (12.0-20.0); Calcium, Blood 9.2 mg/dL (8.5-10.1); Creatinine, Blood 0.88 mg/dL (0.40-1.00); Potassium, Blood 3.6 mmol/L (3.5-5.5)
--- NOTE | 2022-03-25 06:33 | NUR ---
NOC SHIFT SUMMARY PT SLEPT WELL. ORIENTED X4, VSS PER PT TREND. HEP GTT RUNNING PER PROVIDER ORDER. DENIES CHEST PAIN OR DISCOMFORT. WILL PASS ON TO DAY RN
--- NOTE | 2022-03-25 10:07 | NUR ---
CARE NOTE AT APPROX. 0817 THIS NURSE WAS NOTIFIED THAT PT HAD A 2.97 SEC PAUSE AND HAD BRADYCARDIA OF 30. NORMAL HR RESUMED IN 70'S. WHEN THIS NURSE ASSESSED PT, SHE DENIED FEELINGS OF DIZZINESS, LIGHTHEADEDNESS, OR CHEST PAIN/PRESSURE. THIS NURSE NOTIFIED DR. ONEILL WELL DR. RHODES AT APPROX 0820. DR. RHODES CAME TO BEDSIDE.
--- NOTE | 2022-03-25 17:41 | NUR ---
SHIFT SUMMARY PT HAS BEEN ALERT AND ORIENTED X 4. VSS. SEE PREVIOUS NOTE REGARDING EPISODE OF BRADYCARDIA/PAUSE THIS AM. SPO2 98% VIA ROOM AIR. PT HAS CONTINUED TO DENY FEELINGS OF CHEST PAIN/PRESSURE, DIZZINESS, LIGHTHEADEDNESS, NAUSEA. SHE HAS AMBULATED SBA TO BATHROOM AND SAT IN CHAIR DURING AFTERNOON W/ NO REPORTS OF DIZZINESS/LIGHTHEADEDNESS, CP/PRESSURE. HEPARIN DRIP D/C'D THIS AM PER ORDERS, IV IN R AC IS SALINE LOCKED. SHE IS STEADY ON HER FEET WHEN AMBULATING. SHE USES HER CALL LIGHT APPROPRIATELY. SINCE THIS AM EPISODE OF BRADYCARDIA, THERE HAVE NOT BEEN ANY CARDIAC EVENTS NOTED. PT IS CURRENTLY EATING DINNER AND WATCHING TV. CALL LIGHT IN REACH. WILL CONTINUE TO MONITOR UNTIL REPORT GIVEN.
--- NOTE | 2022-03-25 20:00 | NUR ---
ASSUMED CARE. AOX3, DENIES ANY PAIN, CP, DIZZINESS, OR LIGHTHEADNESS. STATES SHE FEELS FINE. DENIES ANY NEEDS. SINUS ON THE MONITOR WITH 1ST DEGREE BLOCK. RATE IN THE 80'S. ABLE TO GET UP INDEPENDENT IN THE ROOM. JUST WENT HOME FOR THE NIGHT. VS WNL. WILL CONTINUE TO MONITOR.
--- NOTE | 2022-03-26 05:21 | NUR ---
SHIFT SUMMARY: PT HAS REMAINED STABLE T/O NOC. VS WNL, SINUS WITH FIRST DEGREE BLOCK ON MONITOR. NO PAUSES, CHEST PAIN, DIZZINESS OR OTHER CARDIAC SYMPTOMS. SLEPT WELL T/O THE NIGHT. BLOOD SUGARS STABLE, NO COVERAGE WAS INDICATED. NO NEEDS WERE NOTED. CALL LIGHT REMAINED IN REACH.
[2022-03-26] MEDS ORDERED: LOSA25 PO (09:33)
[2022-03-26] MEDS ORDERED: Nicoderm Cq1 EACH TOP (09:34)
[2022-03-26] MEDS ORDERED: EZET10 PO (09:34)
--- NOTE | 2022-03-26 10:20 | NUR ---
PT DISCHARGE TO HOME WITH DISCHARGE ORDERS. DISCHARGE INSTRUCTIONS AND NEW MEDICATIONS DISCLOSED WITH THE PT, PT VERBALIZED UNDERSTANDING. PRESCRIPTION SNET TO [facility]. PT HAS BEEN INDEPENDENT IN THE ROOM, NO ACUTE CHANGES FOR THE SHIFT, VITALS HAS BEEN STABLE. ALL BELONGINGS SENT WITH THE PT, ACCOMPANIED FOR DISCHARGE VIA WHEELCHAIR, ABLE TO PROVIDE TRANSPORTATION
== END 2022-03-26 09:57 | disposition home or self-care (01) | DRG 282 ==
LOC: ER 09:15 → PCU 12:21
PROVIDERS: Emergency Medicine; Internal Medicine Cardiovascular Disease; Nurse Practitioner Acute Care; ADMIT Internal Medicine
DX: I21.4 Non-ST elevation (NSTEMI) myocardial infarction (principal); I10 Essential (primary) hypertension; I25.10 Atherosclerotic heart disease of native coronary artery without angina pectoris; E78.5 Hyperlipidemia, unspecified; I73.00 Raynaud's syndrome without gangrene; E11.9 Type 2 diabetes mellitus without complications; F32.A Depression, unspecified; I49.5 Sick sinus syndrome; F41.1 Generalized anxiety disorder; F17.210 Nicotine dependence, cigarettes, uncomplicated; R79.89 Other specified abnormal findings of blood chemistry; Z71.6 Tobacco abuse counseling; Z91.14 Patient's other noncompliance with medication regimen; Z95.1 Presence of aortocoronary bypass graft; I25.2 Old myocardial infarction; Z88.2 Allergy status to sulfonamides; Z91.041 Radiographic dye allergy status; Z79.02 Long term (current) use of antithrombotics/antiplatelets; Z79.82 Long term (current) use of aspirin; Z79.899 Other long term (current) drug therapy
CPT/HCPCS: 36415; 71046; 76705; 80048; 80053; 80061; 82947; 83690; 83735; 83880; 84484; 85025; 85520; 85610; 85730; 93005; 93010; 93306; 96374; 99285-25; A9270; J1644; J2405